=== PATIENT | female | born 1970 | race Caucasian/White ===

== ENCOUNTER 2017-02-28 19:24 | Emergency (ER) | payer OTHER ==
[2017-02-28 19:30] VITALS: BP 141/85
[2017-02-28] MEDS ORDERED: Sodium Chloride 0.9% 1,000 ML IV ONE (20:16)
[2017-02-28] MEDS ORDERED: Ondansetron 4 MG/2 ML SDV IVPUSH STA (20:16)
[2017-02-28] MEDS ORDERED: Ondansetron 4 MG/2 ML SDV IVPUSH ONE (20:17)
--- NOTE | 2017-02-28 21:48 | EDM.PDOC ---
ED HPI GENERAL MEDICAL PROBLEM - General Chief Complaint: Gastrointestinal Problem Time Seen by Provider: 02/28/17 19:44 Source of Information: Reports: Patient, RN Notes Reviewed History Limitations: Reports: No Limitations - History of Present Illness INITIAL COMMENTS - FREE TEXT/NARRATIVE: The patient states that she was diagnosed with early stage Hodgkin lymphoma on February 04, 2017. A left-sided Port-A-Cath was placed on February 19, and she was started on doxorubicin, bleomycin, vinblastine, and dacarbazine (ABVD) that same day. She was warned that she may develop nausea and vomiting, and was prescribed Compazine. She states that she developed nausea and emesis around 21:00 last night, which has continued approximately hourly since. She states that she has taken 4 doses of Compazine so far, the first at 03:00 this morning, the most recent at 14:00 this afternoon. She states that she may have vomited up some of the Compazine pills. She states that she was experiencing constipation, therefore took some prune juice, which has resulted in loose bowel movements and abdominal cramps since evening, 02/25/2017. No recent fever. The patient lives in [place], [place], and is treated at the [facility]. Her PCP is Dr. Khanna, and her Oncologist is Dr. Oconnor. Abdomen Pain Score (Numeric/FACES): 8 - Related Data Allergies Allergy/AdvReac Type Severity Reaction Status Date / Time No Known Allergies Allergy Verified 02/28/17 19:35 Home Meds: Home Meds Prochlorperazine [Compazine] 5 mg PO ASDIRECTED PRN 02/28/17 [History] Past Medical History Oncologic (Cancer) History: Reports: Hodgkin's Lymphoma - Past Surgical History Cardiovascular Surgical History: Reports: Other (See Below) (Left Port-A-Cath ) Musculoskeletal Surgical History: Reports: Arthroscopic Knee (bilateral) Social & Family History - Tobacco Use Smoking Status *Q: Never Smoker - Caffeine Use Caffeine Use: Reports: None - Alcohol Use Alcohol Use History: Yes Alcohol Use Frequency: Socially - Recreational Drug Use Recreational Drug Use: No - Living Situation & Occupation Living situation: Reports: Single, with Significant Other 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) ED ROS GENERAL - Review of Systems Review Of Systems: See Below Constitutional: Reports: No Symptoms HEENT: Reports: No Symptoms Respiratory: Reports: No Symptoms Cardiovascular: Reports: No Symptoms Endocrine: Reports: No Symptoms GI/Abdominal: Reports: No Symptoms : Reports: No Symptoms Musculoskeletal: Reports: No Symptoms Skin: Reports: No Symptoms Neurological: Reports: No Symptoms Psychiatric: Reports: No Symptoms Hematologic/Lymphatic: Reports: No Symptoms Immunologic: Reports: No Symptoms ED EXAM, GENERAL - Physical Exam Exam: See Below Exam Limited By: No Limitations General Appearance: Alert, WD/WN, Mild Distress (Appears uncomfortable. Vomited during my H&P.) Eye Exam: Bilateral Eye: Normal Inspection Ears: Normal External Exam, Hearing Grossly Normal Ear Exam: Bilateral Ear: Auricle Normal Nose: Normal Inspection, No Blood Throat/Mouth: Normal Inspection, Normal Lips, Normal Voice, No Airway Compromise Head: Atraumatic, Normocephalic Neck: Normal Inspection, Full Range of Motion Respiratory/Chest: No Respiratory Distress, Lungs Clear, Normal Breath Sounds, No Accessory Muscle Use Cardiovascular: Normal Peripheral Pulses, Regular Rate, Rhythm, No Gallop, No JVD, No Murmur, No Rub Peripheral Pulses: 4+: Radial (L), Radial (R) GI/Abdominal: Normal Bowel Sounds, Soft, Non-Tender, No Organomegaly, No Distention, No Abnormal Bruit, No Mass (Female) Exam: Deferred Rectal (Female) Exam: Deferred Back Exam: Normal Inspection, Full Range of Motion. No: CVA Tenderness (L), CVA Tenderness (R) Extremities: Normal Inspection, Normal Range of Motion, No Pedal Edema, Normal Capillary Refill Neurological: Alert, Oriented, Normal Cognition, No Motor/Sensory Deficits Psychiatric: Normal Affect Skin Exam: Warm, Dry, Intact, Normal Color, No Rash Lymphatic: No Adenopathy Course - Vital Signs Last Recorded V/S: Last Vital Signs Temp 36.9 C 02/28/17 19:29 Pulse 62 02/28/17 19:29 Resp 20 02/28/17 19:29 BP 141/85 H 02/28/17 19:29 Pulse Ox 100 02/28/17 19:29 - Orders/Labs/Meds Labs: Laboratory Tests 02/28/17 02/28/17 Range/Units 20:45 20:45 WBC 2.86 L (3.98-10.04) K/mm3 RBC 4.32 (3.98-5.22) M/mm3 Hgb 12.6 (11.2-15.7) gm/L Hct 36.4 (34.1-44.9) % MCV 84.3 (79.4-94.8) fl MCH 29.2 (25.6-32.2) pg MCHC 34.6 (32.2-35.5) g/dl RDW Std Deviation 37.7 (36.4-46.3) fL Plt Count 250 (182-369) K/mm3 MPV 10.6 (9.4-12.3) fl Neutrophils % (Manual) 74 H (40-60) % Band Neutrophils % 0 (0-10) % Lymphocytes % (Manual) 24 (20-40) % Atypical Lymphs % 0 % Monocytes % (Manual) 2 (2-10) % Eosinophils % (Manual) 0 L (0.7-5.8) % Basophils % (Manual) 0 L (0.1-1.2) Platelet Estimate Adequate RBC Morph Comment Normal Sodium 134 L (136-145) mEq/L Potassium 3.6 (3.5-5.1) mEq/L Chloride 96 L (98-107) mEq/L Carbon Dioxide 29 (21-32) mEq/L Anion Gap 12.6 (5-15) BUN 15 (7-18) mg/dL Creatinine 1.0 (0.55-1.02) mg/dL Est Cr Clr Drug Dosing 62.58 mL/min Estimated GFR (MDRD) 59 (>60) mL/min BUN/Creatinine Ratio 15.0 (14-18) Glucose 121 H (74-106) mg/dL Calcium 9.1 (8.5-10.1) mg/dL Magnesium 1.9 (1.8-2.4) mg/dl Total Bilirubin 0.5 (0.2-1.0) mg/dL AST 17 (15-37) U/L ALT 42 (14-59) U/L Alkaline Phosphatase 59 (46-116) U/L Total Protein 7.2 (6.4-8.2) g/dl Albumin 3.9 (3.4-5.0) g/dl Globulin 3.3 gm/dL Albumin/Globulin Ratio 1.2 (1-2) Meds: Medications Discontinued Medications Generic Name Dose Route Start Last Admin Trade Name Freq PRN Reason Stop Dose Admin Sodium Chloride 1,000 mls @ 999 mls/hr 02/28/17 20:16 02/28/17 20:43 Normal Saline IV 02/28/17 21:16 999 mls/hr ONETIME ONE Administration Ondansetron HCl 4 mg 02/28/17 20:16 02/28/17 20:41 Zofran IVPUSH 02/28/17 20:17 4 mg ONETIME STA Administration Ondansetron HCl 4 mg 02/28/17 20:17 02/28/17 20:44 Zofran IVPUSH 02/28/17 20:18 4 mg ONETIME ONE Administration - Re-Assessments/Exams Free Text/Narrative Re-Assessment/Exam: 02/28/17 21:41 The patient states that she is feeling significantly better, following IV fluid and Zofran. We are still waiting on the CBC. 02/28/17 22:03 Test results discussed with the patient and her friends at the bedside. The patient's WBC count is depressed at 2.86, almost certainly the result of her chemotherapy. The remainder of her labs, however, are unremarkable. I will discharge her home with an [facility] prescription for Zofran. Departure - Departure Time of Disposition: 22:03 Disposition: Home, Self-Care 01 Condition: Good Clinical Impression: Chemotherapy-induced nausea and vomiting - Discharge Information Forms: ED Department Discharge Additional Instructions: You were seen in the emergency room for nausea and vomiting following chemotherapy 9 days ago. Workup in the ER included a CBC, CMP, and magnesium level. Your white blood cell count is low at 2.86. This is likely the result of your chemotherapy. Otherwise, the remainder of your workup was unremarkable. You were given IV fluid and the anti-nausea medicine Zofran. You have been prescribed oral Zofran. Dissolve 1 tablet on your tongue up to every 8 hours, as needed for nausea/vomiting. Stay adequately hydrated. If any other problems, please do not hesitate to return to the ER.
== END 2017-02-28 22:25 | disposition home or self-care (01) ==
LOC: JD.ED 19:24 → SUPCPDRO 19:24 → JD.ED 22:25
DX: R11.2 Nausea with vomiting, unspecified (principal); C81.90 Hodgkin lymphoma, unspecified, unspecified site; T45.1X5A Adverse effect of antineoplastic and immunosuppressive drugs, initial encounter
CPT/HCPCS: 36415; 36569; 80053; 83735; 85025; 96361; 96374; 99284; J2405; J7040; 99283